=== PATIENT | male | born 1990 | race African-American/Black ===

== ENCOUNTER 2023-02-20 11:42 | Emergency (ER) | payer MEDICAID ==
[~2023-02-20] VITALS: Ht 188 cm; Wt 79.0 kg
[2023-02-20 11:50] VITALS: BP 105/61; PULSE 86; RESP 20; TEMP 98.3; O2SAT 100
== END 2023-02-20 14:24 | disposition home or self-care (01) ==
LOC: ER 12:01
DX: M25.551 Pain in right hip (principal); F32.A Depression, unspecified; S76.011A Strain of muscle, fascia and tendon of right hip, initial encounter; X58.XXXA Exposure to other specified factors, initial encounter; Y93.89 Activity, other specified; Y92.89 Other specified places as the place of occurrence of the external cause; Y99.8 Other external cause status
CPT/HCPCS: 73502; 99283